=== PATIENT | female | born 1955 | race Caucasian/White ===

== ENCOUNTER 2018-11-20 10:03 | Emergency (ER) | payer OTHER ==
[~2018-11-20] VITALS: Ht 162.6 cm; Wt 90.7 kg
--- NOTE | 2018-11-20 10:08 | NUR ---
PT A/OX4, PRESENTS TO THE ER C/O R FLANK PAIN X 2 DAYS. PT REPORTS NON-PROVOKING PAIN THAT IS THROBBING IN QUALITY, RADIATES DOWN TOWARDS THE R GROIN AND UP TOWARDS THE LOWER BACK, 7/10, CONSTANT. SECONDARY COMPLAINT: NAUSEA VS WNL. PT DENIES C/P, SOB, DIZZINESS, HEADACHE.
--- NOTE | 2018-11-20 10:11 | NUR ---
ROSS WARD AT BEDSIDE FOR MSE.
[2018-11-20] MEDS ORDERED: MORPHINE SULFATE 2 MG/1 ML DISP.SYRIN IV ONE (10:15)
[2018-11-20] MEDS ORDERED: ONDANSETRON 4 MG/2 ML VIAL IV ONE (10:15)
[2018-11-20] MEDS ORDERED: IV NORMAL SALINE 1000 ML BAG IV ONE (10:15)
[2018-11-20] MEDS ORDERED: ONDANSETRON 4 MG/2 ML VIAL ONE ×2 (10:22→10:57)
[2018-11-20] MEDS ORDERED: MORPHINE SULFATE 4 MG/1 ML DISP.SYRIN ONE ×2 (10:22→10:57)
[2018-11-20 10:27] LABS: BASOPHILS # (AUTO) 0.1 K/uL (0.0-8.0); BASOPHILS % (AUTO) 0.5 % (0.0-2.0); EOSINOPHILS % (AUTO) 0.3 % (0.0-7.0); HEMATOCRIT 44.8 % (31.2-41.9); HEMOGLOBIN 14.9 g/dL (10.9-14.3); LYMPHOCYTES # (AUTO) 1.9 K/uL (20.0-40.0); LYMPHOCYTES % (AUTO) 15.1 % (20.5-51.5); MEAN CORPUSCULAR HEMOGLOBIN 28.9 uug (24.7-32.8); MEAN CORPUSCULAR HGB CONC 33 g/dL (32.3-35.6); MEAN CORPUSCULAR VOLUME 87.1 fL (75.5-95.3); MONOCYTES # (AUTO) 0.9 K/uL (2.0-10.0); NEUTROPHILS # (AUTO) 9.8 K/uL (1.8-8.9); NEUTROPHILS % (AUTO) 77.1 % (38.5-71.5); PLATELET COUNT (AUTO) 218 K/uL (179-408); RED BLOOD CELL COUNT(AUTO) 5.14 MIL/uL (3.63-4.92); WHITE BLOOD COUNT (AUTO) 12.7 K/uL (3.8-11.8)
[2018-11-20 10:34] LABS: *BILIRUBIN,URIN 1+ (NEGATIVE); *BLOOD, URINE 1+ (NEGATIVE); *CLARITY,URINE SLIGHTLY CLOUDY (CLEAR); *COLOR,URINE YELLOW (YELLOW); *KETONES,URINE 1+ (NEGATIVE); *UROBILINOGEN,URINE 0.2 E.U./dl (NORMAL); LEUKOCYTE ESTERASE ,URINE NEGATIVE (NEGATIVE); NITRITE, URINE NEGATIVE (NEGATIVE); UGLUCOSE NEGATIVE (NEGATIVE)
--- NOTE | 2018-11-20 10:35 | NUR ---
PT TAKEN TO RADIOLOGY FOR CT SCAN.
[2018-11-20 10:39] LABS: BILIRUBIN,DIRECT 0.1 mg/dL (0.0-0.2); BILIRUBIN,TOTAL 0.8 mg/dL (0.2-1.0); CREATININE 1.4 mg/dL (0.6-1.3); POTASSIUM 4.1 mmol/L (3.5-5.1)
[2018-11-20 10:43] LABS: SQUAMOUS EPITHELIAL CELL,UR MANY /HPF (NONE SEEN)
[2018-11-20 10:44] LABS: BACTERIA,URINE FEW /HPF (NONE SEEN); MUCUS,URINE FEW /LPF (0-FEW)
--- NOTE | 2018-11-20 10:45 | NUR ---
PT BACK IN ER FROM RADIOLOGY.
--- NOTE | 2018-11-20 10:53 | NUR ---
PT C/O WORSENING ABD PAIN. ER MD NOTIFIED. AWAITING ORDERS.
[2018-11-20] MEDS ORDERED: ONDANSETRON IV *ER 4 MG/2 ML VIAL IV ONE (11:00)
[2018-11-20] MEDS ORDERED: MORPHINE SULFATE 4 MG/1 ML DISP.SYRIN IV ONE (11:00)
--- NOTE | 2018-11-20 11:11 | NUR ---
ROSS WARD AT BEDSIDE FOR PT UPDATE.
[2018-11-20] MEDS ORDERED: KETOROLAC TROMETHAMINE 30 MG INJ ONE (11:15)
[2018-11-20] MEDS ORDERED: KETOROLAC TROMETHAMINE 30 MG INJ IVP ONE (11:15)
--- NOTE | 2018-11-20 12:03 | NUR ---
Patient discharged to home in stable conditon. Written and verbal after care instructions given. Patient verbalizes understanding of instructions. ALL BELONGINGS W/ PT. PT SELF-AMBULATED W/O DIFFICULTY. 20G IV ACCESS IN RAC REMOVED PRIOR TO D/C - INNER CANNULA INTACT. PT WILL BE DRIVEN HOME BY SPOUSE IN PRIVATE VEHICLE.
[2018-11-20 12:04] VITALS: BP 128/74
== END 2018-11-20 12:07 | disposition home or self-care (01) ==
LOC: ER 10:03
DX: K44.9 Diaphragmatic hernia without obstruction or gangrene (principal); N20.1 Calculus of ureter; K57.90 Diverticulosis of intestine, part unspecified, without perforation or abscess without bleeding; R11.2 Nausea with vomiting, unspecified; Z88.5 Allergy status to narcotic agent
CPT/HCPCS: 36415; 71045; 74176; 80048; 80076; 81000; 81001; 83690; 85025; 93005; 96361; 96374; 96375; 96376; 99284; J1885; J2270 ×2; J2405 ×2; A4663; J7030

== ENCOUNTER 2019-05-26 12:06 | Emergency (ER) | payer OTHER ==
[~2019-05-26] VITALS: Ht 165.1 cm; Wt 77.1 kg
[2019-05-26] MEDS ORDERED: TDAP DIPH,PERTUSS,TET VAC/PF 0.5 ML DISP.SYRIN IM ONE ×2 (12:26→12:30)
--- NOTE | 2019-05-26 12:35 | NUR ---
Patient discharged to home in stable conditon. Written and verbal after care instructions given. Patient verbalizes understanding of instructions.
[2019-05-26 12:36] VITALS: BP 141/73
== END 2019-05-26 12:36 | disposition home or self-care (01) ==
LOC: ER 12:06
DX: S51.051A Open bite, right elbow, initial encounter (principal); Z88.8 Allergy status to other drugs, medicaments and biological substances; W54.0XXA Bitten by dog, initial encounter; Y93.89 Activity, other specified; Y92.89 Other specified places as the place of occurrence of the external cause; Y99.8 Other external cause status
CPT/HCPCS: 90715; A4663